=== PATIENT | male | born 1960 | race Caucasian/White ===

== ENCOUNTER → 2017-11-24 | Outpatient (CLI) | payer MEDICARE, OTHER ==
[2017-11-24 14:41] LABS: ALT 30 U/L (21-72); AST 22 U/L (17-59); Albumin 3.9 g/dL (3.5-5.0); Alkaline Phosphatase 54 U/L (38-126); Anion Gap 13 mmol/L; Blood Urea Nitrogen 15 mg/dL (9-20); Calcium 8.9 mg/dL (8.4-10.2); Carbon Dioxide 27 mmol/L (22-30); Chloride 103 mmol/L (98-107); Glucose 156 mg/dL (74-99); Potassium 4.1 mmol/L (3.5-5.1); Sodium 143 mmol/L (137-145); Total Bilirubin 0.5 mg/dL (0.2-1.3); Total Protein 6.5 g/dL (6.3-8.2)
== END | disposition home or self-care (01) ==
LOC: LABWHC1 14:03
PROVIDERS: ATTEND Internal Medicine Endocrinology, Diabetes & Metabolism
DX: E11.65 Type 2 diabetes mellitus with hyperglycemia (principal)
CPT/HCPCS: 36415; 80053

== ENCOUNTER 2019-11-13 16:55 | Inpatient (IN) | payer MEDICARE, OTHER ==
[2019-11-13] MEDS ORDERED: ASPIRIN 81 MG PO STA (17:00)
[2019-11-13 17:50] LABS: Basophils # (A) 0.1 k/uL (0-0.2); Basophils % (A) 1 %; Eosinophils # (A) 0.3 k/uL (0-0.7); Eosinophils % (A) 3 %; HCT 41.8 % (39.0-53.0); HGB 13.5 gm/dL (13.0-17.5); Lymphocytes # (A) 2.5 k/uL (1.0-4.8); Lymphocytes % (A) 26 %; MCH 27.1 pg (25.0-35.0); MCHC 32.2 g/dL (31.0-37.0); MCV 84.3 fL (80.0-100.0); Mean Platelet Volume 7.6; Monocytes # (A) 0.7 k/uL (0-1.0); Monocytes % (A) 7 %; Neutrophils # (A) 5.8 k/uL (1.3-7.7); Neutrophils % (A) 62 %; Platelet Count 452 k/uL (150-450); RBC 4.96 m/uL (4.30-5.90); RDW 13.5 % (11.5-15.5); WBC 9.4 k/uL (3.8-10.6)
[2019-11-13 18:00] LABS: Albumin 3.8 g/dL (3.5-5.0); Calcium 9.3 mg/dL (8.4-10.2); Magnesium 1.7 mg/dL (1.6-2.3); Potassium 5.2 mmol/L (3.5-5.1); Total Bilirubin 0.4 mg/dL (0.2-1.3); Total Protein 6.7 g/dL (6.3-8.2)
--- NOTE | 2019-11-13 18:03 | XR ---
EXAMINATION TYPE: XR chest 2V DATE OF EXAM: 11/13/2019 COMPARISON: Prior chest 12/17/2015 HISTORY: Chest pain TECHNIQUE: Frontal and lateral views of the chest are obtained. FINDINGS: There is no focal air space opacity, pleural effusion, or pneumothorax seen. The cardiac silhouette size is within normal limits. There are overlying cardiac leads. Some minimal blunting the right costophrenic angle may be due to chronic pleural reaction. There are prominent lung volumes. The osseous structures are intact. IMPRESSION: No acute cardiopulmonary process.
[2019-11-13 18:14] LABS: D-Dimer 0.3 mg/L FEU (<0.60)
[2019-11-13 18:33] LABS: Partial Thromboplastin Time 21.3 sec (22.0-30.0)
[2019-11-13] MEDS ORDERED: NITROGLYCERIN SL TABS 0.4 MG TAB SUBLINGUAL PRN (18:35)
--- NOTE | 2019-11-13 19:09 | ED ---
Dizziness HPI - General Chief Complaint: Syncope Stated Complaint: Syncope Time Seen by Provider: 11/13/19 17:00 Source: patient, EMS Mode of arrival: EMS Limitations: no limitations - History of Present Illness Initial Comments: 59-year-old male with history of significant coronary artery disease with 5 stents placed, HTN as her presenting today for chief complaint of syncope. Patient states he had 2 syncopal episodes [id number] today. He stated the initial one happened when he was walking from his camper to inside he states he does not believe but is unsure if he hit his head he has no headaches visual changes nausea vomiting. Chest pain or shortness breath prior he states he felt slightly lightheaded and then woke up on the ground. Patient states that he then had another syncopal episode shortly after in the house and fell onto the couch- he states he is unsure if he hit his head but doesnt feel like he did. Patient states no one noted seizure-like activity he states he did not have incontinence. Patient states he only felt lightheaded he had no chest pain or shortness of breath he denies any leg swelling. Deep inspiration history of DVT or pulmonary embolism or unilateral leg swelling. Patient denies any fevers cough or URI symptoms patient denies diarrhea or vomiting. Patient denies any melena hematochezia or hematemesis. Patient denies any visual changes sensation of the room is spinning. Patient denies any neck pain. Patient denies any injury to the upper or lower extremities denies injury to the chest or abdomen. Patient has no localizing symptoms at this time he was brought to the emergency department after second syncopal episode. - Related Data Home Medications Medication Instructions Recorded Confirmed Carvedilol [Coreg] 6.25 mg PO BID 08/27/15 12/31/15 Clopidogrel [Plavix] 75 mg PO HS 08/27/15 12/31/15 Fenofibrate,Micronized 200 mg PO HS 08/27/15 12/31/15 [Fenofibrate] Gabapentin [Neurontin] 200 mg PO TID 08/27/15 12/31/15 Lisinopril [Zestril] 5 mg PO DAILY 08/27/15 12/31/15 Loratadine [Claritin] 10 mg PO BID 08/27/15 12/31/15 Ranolazine [Ranexa] 500 mg PO BID 08/27/15 12/31/15 Simvastatin [Zocor] 40 mg PO HS 08/27/15 12/31/15 Citalopram Hydrobromide 40 mg PO DAILY 09/10/15 12/31/15 [Citalopram HBr] Ezetimibe [Zetia] 10 mg PO DAILY 09/10/15 12/31/15 Varenicline [Chantix Continuing 1 mg PO BID 09/10/15 12/31/15 Pack] Albuterol Sulfate [Proair Hfa] 1 puff INHALATION RT-QID PRN 09/14/15 12/31/15 ALPRAZolam [Xanax] 1 mg PO HS 10/08/15 12/31/15 INSULIN LISPRO (humaLOG) [humaLOG] See Protocol SQ ACHS PRN 11/25/15 12/31/15 Isosorbide Mononitrate ER [Imdur] 60 mg PO QAM 12/10/15 12/31/15 metFORMIN HCL 1,000 mg PO BID 12/10/15 12/31/15 Previous Rx's Medication Instructions Recorded INSULIN LISPRO (humaLOG) [humaLOG] 15 unit SQ AC-BRKFST #1 vial 11/30/15 INSULIN LISPRO (humaLOG) [humaLOG] 25 unit SQ AC-LUNCH vial 11/30/15 INSULIN LISPRO (humaLOG) [humaLOG] 25 unit SQ AC-SUPPER vial 11/30/15 Insulin Glargine [Lantus] 60 unit SQ BID #0 11/30/15 Allergies Allergy/AdvReac Type Severity Reaction Status Date / Time No Known Allergies Allergy Verified 11/13/19 18:46 Review of Systems ROS Statement: Those systems with pertinent positive or pertinent negative responses have been documented in the HPI. ROS Other: All systems not noted in ROS Statement are negative. Past Medical History Past Medical History: Asthma, Chest Pain / Angina, Heart Failure, COPD, Diabetes Mellitus, Hyperlipidemia, Myocardial Infarction (NV) Additional Past Medical History / Comment(s): hay fever, neuropathy, NV in 2013 Last Myocardial Infarction Date:: 05/22/2014 History of Any Multi-Drug Resistant Organisms: None Reported Past Surgical History: Heart Catheterization, Heart Catheterization With Stent Additional Past Surgical History / Comment(s): [address] in 2013, 2 stents placed in 2012. Incision and drainage (debridement of left foot wound) Past Anesthesia/Blood Transfusion Reactions: No Reported Reaction Date of Last Stent Placement:: 05/2014 Past Psychological History: Anxiety, Depression Smoking Status: Current every day smoker Past Alcohol Use History: None Reported Past Drug Use History: Marijuana - Past Family History Mother Family Medical History: Congestive Heart Failure (CHF), Diabetes Mellitus Father Family Medical History: Congestive Heart Failure (CHF), Diabetes Mellitus General Exam - General Exam Comments Initial Comments: General: The patient is awake and alert, in no distress Eye: +3 mm pupils are equal, round and reactive to light, extra-ocular movements are intact. No nystagmus. There is normal conjunctiva bilaterally. No signs of icterus. Ears, nose, mouth and throat: There are moist mucous membranes and no oral lesions. No scalp hematomas no raccoon or Figueroa sign. Neck: The neck is supple, there is no tenderness or JVD. No midline tenderness to patient the cervical spine forward motion without pain Cardiovascular: There is a regular rate and rhythm. No murmur, rub or gallop is appreciated. Respiratory: Lungs are clear to auscultation, respirations are non-labored, breath sounds are equal. No wheezes, stridor, rales, or rhonchi. Gastrointestinal: Soft, non-distended, non-tender abdomen without masses or organomegaly noted. There is no rebound or guarding present. Musculoskeletal: Normal ROM, no tenderness. Strength 5/5. Sensation intact. Radial and DP pulses equal bilaterally 2+. Neurological: A&O x 3. CN II-XII intact, There are no obvious motor or sensory deficits. Coordination appears grossly intact. Speech is normal. Skin: Skin is warm and dry and no rashes or lesions are noted. NO LE edema, no calf swelling or pain Psychiatric: Cooperative, appropriate mood & affect, normal judgment. Limitations: no limitations Course Vital Signs 11/13/19 11/13/19 11/13/19 16:56 17:43 19:00 Temperature 98.3 F Pulse Rate 71 68 62 Respiratory 18 18 18 Rate Blood Pressure 110/66 95/57 117/67 O2 Sat by Pulse 97 94 L 97 Oximetry 11/13/19 11/13/19 20:00 20:58 Temperature 97.9 F 98.0 F Pulse Rate 64 64 Respiratory 18 18 Rate Blood Pressure 113/69 137/71 O2 Sat by Pulse 96 97 Oximetry Medical Decision Making - Medical Decision Making 59 yo male presenting for cc of syncope x2. CAD history. No CP/SOB. Lungs clear. Heart slight murmur. No Leg swelling, No distress. CT brain (-) obtained secondary to patient not being sure if he hit his head or not and he is on plavix. Patient CXR clear. No focal neurological deficits. However given that the episode occurred twice. Patient will be admitted for echo and cardiology evaluation. Dr. Scott agreeable to this care plan and admission, he spoke with admitting provider who accepted. - Lab Data Result diagrams: 11/13/19 17:00 11/13/19 17:00 Lab Results 11/13/19 11/13/19 11/13/19 Range/Units 17:00 17:00 17:00 WBC 9.4 (3.8-10.6) k/uL RBC 4.96 (4.30-5.90) m/uL Hgb 13.5 (13.0-17.5) gm/dL Hct 41.8 (39.0-53.0) % MCV 84.3 (80.0-100.0) fL MCH 27.1 (25.0-35.0) pg MCHC 32.2 (31.0-37.0) g/dL RDW 13.5 (11.5-15.5) % Plt Count 452 H (150-450) k/uL Neutrophils % 62 % Lymphocytes % 26 % Monocytes % 7 % Eosinophils % 3 % Basophils % 1 % Neutrophils # 5.8 (1.3-7.7) k/uL Lymphocytes # 2.5 (1.0-4.8) k/uL Monocytes # 0.7 (0-1.0) k/uL Eosinophils # 0.3 (0-0.7) k/uL Basophils # 0.1 (0-0.2) k/uL PT 10.0 (9.0-12.0) sec INR 1.0 (<1.2) APTT 21.3 L (22.0-30.0) sec D-Dimer 0.30 (<0.60) mg/L FEU Sodium 136 L (137-145) mmol/L Potassium 5.2 H (3.5-5.1) mmol/L Chloride 103 (98-107) mmol/L Carbon Dioxide 22 (22-30) mmol/L Anion Gap 11 mmol/L BUN 21 H (9-20) mg/dL Creatinine 1.28 H (0.66-1.25) mg/dL Est GFR (CKD-EPI)AfAm 70 (>60 ml/min/1.73 sqM) Est GFR (CKD-EPI)NonAf 61 (>60 ml/min/1.73 sqM) Glucose 164 H (74-99) mg/dL Calcium 9.3 (8.4-10.2) mg/dL Magnesium 1.7 (1.6-2.3) mg/dL Total Bilirubin 0.4 (0.2-1.3) mg/dL AST 21 (17-59) U/L ALT 18 (4-49) U/L Alkaline Phosphatase 79 (38-126) U/L Troponin I (0.000-0.034) ng/mL Total Protein 6.7 (6.3-8.2) g/dL Albumin 3.8 (3.5-5.0) g/dL 11/13/19 Range/Units 17:00 WBC (3.8-10.6) k/uL RBC (4.30-5.90) m/uL Hgb (13.0-17.5) gm/dL Hct (39.0-53.0) % MCV (80.0-100.0) fL MCH (25.0-35.0) pg MCHC (31.0-37.0) g/dL RDW (11.5-15.5) % Plt Count (150-450) k/uL Neutrophils % % Lymphocytes % % Monocytes % % Eosinophils % % Basophils % % Neutrophils # (1.3-7.7) k/uL Lymphocytes # (1.0-4.8) k/uL Monocytes # (0-1.0) k/uL Eosinophils # (0-0.7) k/uL Basophils # (0-0.2) k/uL PT (9.0-12.0) sec INR (<1.2) APTT (22.0-30.0) sec D-Dimer (<0.60) mg/L FEU Sodium (137-145) mmol/L Potassium (3.5-5.1) mmol/L Chloride (98-107) mmol/L Carbon Dioxide (22-30) mmol/L Anion Gap mmol/L BUN (9-20) mg/dL Creatinine (0.66-1.25) mg/dL Est GFR (CKD-EPI)AfAm (>60 ml/min/1.73 sqM) Est GFR (CKD-EPI)NonAf (>60 ml/min/1.73 sqM) Glucose (74-99) mg/dL Calcium (8.4-10.2) mg/dL Magnesium (1.6-2.3) mg/dL Total Bilirubin (0.2-1.3) mg/dL AST (17-59) U/L ALT (4-49) U/L Alkaline Phosphatase (38-126) U/L Troponin I <0.012 (0.000-0.034) ng/mL Total Protein (6.3-8.2) g/dL Albumin (3.5-5.0) g/dL Disposition Clinical Impression: Syncope, Lightheaded Disposition: ADMITTED IP TO THIS [facility] Condition: Stable Is patient prescribed a controlled substance at d/c from ED?: No Time of Disposition: 19:28 Decision to Admit Reason: Admit from EC Decision Date: 11/13/19 Decision Time: 19:28
--- NOTE | 2019-11-13 19:15 | CT ---
EXAMINATION TYPE: CT brain wo con DATE OF EXAM: 11/13/2019 COMPARISON: None HISTORY: Syncopal episode per patient. CT DLP: 1096.4 mGycm Automated exposure control for dose reduction was used. CT brain performed using departmental protoco l FINDINGS: There is no hemorrhage or hydrocephalus. Brain density is normal. Calvarium is intact. Orbits show po stop change in the right globe. Paranasal sinuses and mastoid air cells are unremarkable. There are c erebrovascular calcifications. IMPRESSION: NO ACUTE ABNORMALITY.
[2019-11-13 21:31] LABS: Glucose,Whole Blood 179 mg/dL (75-99)
[2019-11-13] MEDS ORDERED: ACETAMINOPHEN TAB 325 MG TAB PO PRN (22:02)
[2019-11-13] MEDS: NICOTINE 21MG/24HR PATCH TRANSDERM SCH (22:24)
[2019-11-14 05:07] LABS: Cholesterol 164 mg/dL (<200); HDL Cholesterol 24 mg/dL (40-60)
[2019-11-14 05:14] LABS: Triglycerides 598 mg/dL (<150)
[2019-11-14 06:20] LABS: Glucose,Whole Blood 200 mg/dL (75-99)
[2019-11-14] MEDS: INSULIN ASPART (NovoLOG) 100 UNIT/ML VIAL SQ SCH ×4 (06:29→21:52)
[2019-11-14] MEDS: INSULIN DETEMIR (LEVEMIR) 100 UNIT/ML SYR SQ SCH ×2 (08:24→21:52)
[2019-11-14] MEDS: NICOTINE 21MG/24HR PATCH TRANSDERM SCH (08:24)
[2019-11-14] MEDS ORDERED: ASPIRIN 325 MG TAB PO SCH (09:00)
[2019-11-14] MEDS: METOPROLOL SUCCINATE (ER) 50 MG TAB.ER.24H PO SCH (10:18)
[2019-11-14 11:29] LABS: Glucose,Whole Blood 343 mg/dL (75-99)
--- NOTE | 2019-11-14 15:09 | HP ---
HISTORY AND PHYSICAL CHIEF COMPLAINT: Three episodes of syncope. HISTORY OF PRESENT ILLNESS: This is the first known admission for this gentleman who was standing with some friends when he suddenly passed out. He came to and he had two other events. The last one he remembers waking up in the ambulance. Apparently there was no witnessed tonic colonic movement. He denied any chest pain before or after, nor any palpitations, neurologic deficits, etc. He has had no fever or chills. He has had no cough or hemoptysis. He is diabetic and it was thought that he might have had hypoglycemia, but this was not the case either. The only thing he did notice was some dizziness. He has an extensive history of heart disease. He also has a significant problem with peripheral vascular disease and lipid abnormalities. REVIEW OF SYSTEMS: He denies any focal neurologic deficits, headache, change in vision or hearing, diplopia, shortness of breath, cough, hemoptysis, pleurisy, orthopnea, PND, nausea, vomiting, hematemesis, melena, hematochezia, abdominal pain, diverticulosis, diverticulitis, hemorrhoids, jaundice, hepatitis, cirrhosis, renal failure, hematuria, dysuria, frequency, urgency, nocturia, etc. Past medical history, family history and personal and social histories reveal that he is not allergic to anything. He is on numerous medications, which can be found in the medication section of his record. Surgically, he has had four stents placed and he has had a procedure for occlusive disease in the left leg and supposed to have had another one on the left lower extremity as well. He does not drink but he smokes a pack of cigarettes a day. PHYSICAL EXAMINATION: Blood pressure is 110/66, pulse 71 and regular, respirations of 18, he is afebrile. In general, appeared to be well developed, well nourished, no acute distress. Skin color is normal. Skin is warm, dry. Lymph nodes not enlarged. Head, ears, eyes, nose, mouth, and throat were normal. Neck veins were not distended. Carotids seemed to be normal. Chest is clear to auscultation and percussion. Cardiac exam demonstrated what sounded like normal sinus rhythm. There was no definite murmur or extra sounds. The abdomen was slightly protuberant, soft and nontender. There are no masses or visceromegaly. Extremities were normal. Neurologically, he is intact. Cranial nerves were intact from 2-12 associates. Sensory motor exam is normal. Speech was normal. He was admitted to the hospital diagnoses: 1. Three episodes of syncope. 2. Extensive history of cardiovascular disease. 3. History of coronary artery disease. 4. History of peripheral vascular occlusive disease. 5. Insulin-dependent diabetes mellitus. PLAN: 1. Bed rest. 2. IV fluids. 3. Carotid duplex imaging. 4. EEG. 5. Telemetry. 6. Consult with Neurology and Cardiology. MMODL / IJN: [id number] /
[2019-11-14] MEDS: GABAPENTIN 300 MG CAP PO SCH ×2 (15:12→21:52)
--- NOTE | 2019-11-14 15:14 | US ---
EXAMINATION TYPE: US carotid duplex BILAT DATE OF EXAM: 11/14/2019 COMPARISON: NONE CLINICAL HISTORY: syncope. EXAM MEASUREMENTS: RIGHT: Peak Systolic Velocity (PSV) cm/sec ----- Right CCA: 127.6 ----- Right ICA: 86.5 ----- Right ECA: 141.5 ICA/CCA ratio: 0.7 RIGHT: End Diastole cm/sec ----- Right CCA: 13.7 ----- Right ICA: 19.5 ----- Right ECA: 11.6 LEFT: Peak Systolic Velocity (PSV) cm/sec ----- Left CCA: 109 ----- Left ICA: 90.3 ----- Left ECA: 120.0 ICA/CCA ratio: 0.7 LEFT: End Diastole cm/sec ----- Left CCA: 13.7 ----- Left ICA: 19.2 ----- Left ECA: 7.7 VERTEBRALS (direction of flow): Right Vertebral: Antegrade Left Vertebral: Antegrade Rhythm: Normal Moderate amount of intimal thickening, slightly elevated velocities visualized right mid CCA, right b ulb, right ECA, left proximal CCA IMPRESSION: Mildly elevated velocities multifocally however the common carotid artery to internal ca rotid artery ratios are within normal limits therefore findings suggest hypertension rather than hemo dynamically significant atherosclerosis. If there is further concern CTA neck could be considered. Criteria for Assigning % of Stenosis / Diameter reduction (Estimation based on the indirect measurements of the internal carotid artery velocities (ICA PSV). 1. Normal (no stenosis)=ICA PSV < 125 cm/s: ratio < 2.0: ICA EDV<40 cm/s. 2. Less than 50% stenosis=ICA PSV < 125 cm/s: ratio < 2.0: ICA EDV<40 cm/s. 3. 50 to 69% stenosis=ICA PSV of 125 to 230 cm/s: ration 2.0 ? 4.0: ICA EDV 40-100 cm/s. 4. Greater than 70% stenosis to near occlusion= ICA PSV > 230 cm/s: ratio > 4.0: ICA EDV > 100 cm/s. 5. Near occlusion= ICA PSV velocities may be low or undetectable: variable ratio and ICA EDV. 6. Total occlusion=unable to detect flow.
--- NOTE | 2019-11-14 15:15 | PN ---
PROGRESS NOTE DATE OF SERVICE: 11/14/2019 CHIEF COMPLAINT: Syncope. HISTORY OF PRESENT ILLNESS: This gentleman is doing well. He has had no further syncopal events. He has had no palpitations, chest pain, confusion, neurologic problems, dizziness, etc. PHYSICAL EXAM: Head ears, eyes, nose, mouth, and throat are normal. The chest is clear. Cardiac exam is normal. Abdomen is soft, nontender. He is awake, alert and neurologically intact. IMPRESSION: 1. Three separate episodes of syncope. 2. Coronary artery disease. 3. Peripheral vascular occlusive disease. 4. Diabetes. PLAN: Progress activity and continue telemetry. MMODL / IJN: [id number] /
[2019-11-14 16:21] LABS: Glucose,Whole Blood 328 mg/dL (75-99)
[2019-11-14] MEDS: LOSARTAN 25 MG TAB PO SCH (17:13)
[2019-11-14] MEDS ORDERED: CARVEDILOL 6.25 MG TAB PO SCH (17:30)
[2019-11-14] MEDS ORDERED: CARVEDILOL 12.5 MG TAB PO SCH (17:30)
[2019-11-14 20:15] LABS: Glucose,Whole Blood 288 mg/dL (75-99)
[2019-11-14] MEDS: SYMBICORT 160-4.5 MCG INHALER INHALATION SCH (20:26)
--- NOTE | 2019-11-14 20:40 | P.CNNES ---
History of Present Illness Consult date: 11/14/19 Reason for Consult: Syncope History of Present Illness: This is a new neurology consult requested for further advice and recommendations for a stat T9-year-old gentleman who has significant past medical history for coronary artery disease 5 stents placed. He has hypertension and presented to the emergency room with 3 episodes of syncope within 24 hours. He denies having any nausea vomiting or bulbar side effects. No weakness paresthesias. He has no localizing symptoms that were reported while he was in the ER. He has no localizing symptoms currently. A review of his chart indicates a brain CT was completed did not show any evidence of acute infarct. EKG shows a normal sinus rhythm. Carotid dull Doppler ultrasound results pending. Lipid panel was abnormal for a triglyceride level of 598 within normal cholesterol 164 and decreased HDL 24. Platelets were also significantly elevated at 454. Glucose was mildly elevated at 164. The patient is on dual antiplatelet therapy aspirin and Plavix. The patient reports she's never had a stroke before. This was a new episode however last year he had syncopal episodes which he sought medical attention for. He said there was no clear etiology but it was thought it was due to pneumonia. This patient also has a significant history for COPD. He does not use oxygen at night. He has never been evaluated for obstructive sleep apnea. This patient has significant stroke risk factors which include coronary artery disease, peripheral vascular disease insulin-dependent diabetes and hypertension. When asked of any new medications had been started recently he reports that over a month ago he was started on a new blood pressure medication but he cannot recall the name of it. He felt that he was tolerating this new medication without side effects his blood pressure was well controlled. Review of Systems A 10 point review of systems was obtained with positive pertinent negatives related to history of present illness. In addition the patient does report frequently waking up 2-3 times a night to urinate. He does not have a known history of prostatic hypertrophy. Past Medical History Past Medical History: Asthma, Chest Pain / Angina, Heart Failure, COPD, Diabetes Mellitus, Hyperlipidemia, Myocardial Infarction (SD) Additional Past Medical History / Comment(s): hay fever, neuropathy, SD in 2013 Last Myocardial Infarction Date:: 05/22/2014 History of Any Multi-Drug Resistant Organisms: None Reported Past Surgical History: Heart Catheterization, Heart Catheterization With Stent Additional Past Surgical History / Comment(s): [address] in 2013, 2 stents placed in 2012. Incision and drainage (debridement of left foot wound) Past Anesthesia/Blood Transfusion Reactions: No Reported Reaction Date of Last Stent Placement:: 05/2014 Past Psychological History: Anxiety, Depression Smoking Status: Current every day smoker Past Alcohol Use History: None Reported Past Drug Use History: Marijuana - Past Family History Mother Family Medical History: Congestive Heart Failure (CHF), Diabetes Mellitus Father Family Medical History: Congestive Heart Failure (CHF), Diabetes Mellitus Medications and Allergies Home Medications Medication Instructions Recorded Confirmed Type Lisinopril [Zestril] 5 mg PO DAILY 08/27/15 11/14/19 History Ranolazine [Ranexa] 500 mg PO BID 08/27/15 11/14/19 History Simvastatin [Zocor] 40 mg PO HS 08/27/15 11/14/19 History Citalopram Hydrobromide 40 mg PO DAILY 09/10/15 11/14/19 History [Citalopram HBr] Ezetimibe [Zetia] 10 mg PO DAILY 09/10/15 11/14/19 History Albuterol Sulfate [Proair Hfa] 1 puff INHALATION RT-QID PRN 09/14/15 11/14/19 H istory metFORMIN HCL 1,000 mg PO BID 12/10/15 11/14/19 History Budesonide/Formoterol Fumarate 1 puff INHALATION RT-BID 11/14/19 11/14/19 History [Symbicort 160-4.5 Mcg Inhaler] Carvedilol [Coreg] 12.5 mg PO BID 11/14/19 11/14/19 History Fenofibrate [Lofibra] 160 mg PO DAILY 11/14/19 11/14/19 History Gabapentin [Neurontin] 300 mg PO TID 11/14/19 11/14/19 History INSULIN LISPRO (humaLOG) [humaLOG] 20 unit SQ AC-BRKFST 11/14/19 11/14/19 History INSULIN LISPRO (humaLOG) [humaLOG] 40 unit SQ AC-LUNCH 11/14/19 11/14/19 History INSULIN LISPRO (humaLOG) [humaLOG] 40 unit SQ AC-SUPPER 11/14/19 11/14/19 History Isosorbide Mononitrate ER [Imdur] 30 mg PO DAILY 11/14/19 11/14/19 History Losartan [Cozaar] 25 mg PO DAILY 11/14/19 11/14/19 History Omeprazole [PriLOSEC] 40 mg PO DAILY 11/14/19 11/14/19 History Allergies Allergy/AdvReac Type Severity Reaction Status Date / Time No Known Allergies Allergy Verified 11/13/19 18:46 Physical Examination - Vital Signs Vital Signs: Vital Signs Temp Pulse Pulse Pulse Pulse Pulse Resp 11/14/19 15:16 98.3 F 70 16 11/14/19 11:22 98 F 66 18 11/14/19 08:00 98.3 F 65 16 11/14/19 05:30 11/14/19 04:00 98.5 F 70 81 62 17 11/13/19 23:40 98 F 68 17 11/13/19 20:58 98.0 F 64 18 BP BP BP BP BP Pulse Ox 11/14/19 15:16 145/77 95 11/14/19 11:22 100/62 96 11/14/19 08:00 135/70 95 11/14/19 05:30 145/70 11/14/19 04:00 144/75 168/86 173/89 96 11/13/19 23:40 125/60 96 11/13/19 20:58 137/71 97 Intake and Output 11/14/19 11/14/19 11/14/19 06:59 14:59 22:59 Intake Total 720 240 Output Total 300 240 100 Balance -300 480 140 Intake: Oral 720 240 Output: Urine 300 240 100 Other: # Voids 1 1 Weight 126.4 kg Gen. physical examination obese no acute distress HEENT clear sclera oropharynx shows Janessa Dean grade 3 large broad-based tongue narrow posterior pharynx. Greater than 17 inches. Chest: Wheezing noted throughout coarse breath sounds. Next line cardiac: Regular rate and rhythm no murmurs noted. No carotid bruits present. Pulses: Radial pedal pulses equal and symmetric. Extremities: No clubbing of the digits noted no edema noted in the hands or feet. Neurologic exam Mental status awake alert oriented 3. Speech fluent. Affect appropriate. Pupils: 2 mm equally reactive to light and accommodation. Cranial nerve examination: Cranial nerves III through XII are intact. Gag reflex is strong. Motor examination: Normal muscle bulk and tone throughout. Strength is 5 out of 5 throughout. Pronator drift negative. No tremors or fasciculations noted. Coordination testing: Dysmetria noted on finger to nose testing with the left hand. Heel jeter maneuver is intact bilaterally. Normal finger to nose testing on the right. Deep tendon reflexes are trace over the biceps triceps bilaterally. Patellar reflexes are brisk without crossed adduction bilaterally. Ankle jerks are absent bilaterally. Plantar responses not tested. (Notable sores on soles of feet from peripheral vascular disease). Sensory examination: Grossly intact to light touch throughout. Gait examination deferred Results - Laboratory Findings CBC and BMP: 11/13/19 17:00 11/13/19 17:00 Abnormal Lab Findings: Abnormal Labs 11/13/19 11/13/19 11/13/19 17:00 17:00 17:00 Plt Count 452 H APTT 21.3 L Sodium 136 L Potassium 5.2 H BUN 21 H Creatinine 1.28 H Glucose 164 H POC Glucose (mg/dL) Triglycerides HDL Cholesterol 11/13/19 11/14/19 11/14/19 21:30 04:39 06:18 Plt Count APTT Sodium Potassium BUN Creatinine Glucose POC Glucose (mg/dL) 179 H 200 H Triglycerides 598 H HDL Cholesterol 24 L 11/14/19 11/14/19 11/14/19 11:27 16:20 20:14 Plt Count APTT Sodium Potassium BUN Creatinine Glucose POC Glucose (mg/dL) 343 H 328 H 288 H Triglycerides HDL Cholesterol - Diagnostic Findings EKG: report reviewed Chest x-ray: report reviewed Assessment and Plan Assessment: This is a 59-year-old gentleman who presents with 3 episodes of syncope within 24 hours. This patient has significant stroke risk factors involving insulin dependent diabetes, hypertension and coronary vascular disease. I also believe this patient could be at increased risk for sleep apnea. His platelets were noted to be abnormally high which is often seen in obstructive sleep apnea. Due to the significant coronary disease history, I'm recommending we obtain this evening a CT angiogram of the head and neck to rule out any high-grade stenosis or large vessel occlusion. His neuro exam was focal showing dysmetria with the left hand. His general physical examination was significant for crowded airway posterior pharynx all increasing the risk for obstructive sleep apnea. Summary 1. Syncope 2. Significant stroke risk factors: Hypertension, coronary artery disease, insulin-dependent diabetes 3. Suspect obstructive sleep apnea, possibly overlap syndrome (COPD plus obstructive sleep apnea)/ sleep apnea is the third leading risk factor for stroke independent of diabetes, hypertension and atrial fibrillation. 4. Elevated platelets: Often seen in the setting of obstructive sleep apnea. Increasing risk for hyper-coagulability. 5. Abnormal triglyceride level (patient consumes excessive amount and eggs & venison) Plan: 1. CT angiogram head and neck tonight. 2. MRI of the brain without contrast tomorrow morning. 3. 2-D cardiac echo with cardiology consult. 4. Contact PCP, Dr. Douglass at [phone] to determine what was the new blood pressure medication started 30 days ago and discussed referral for In-lab p olysomnogram 5. Continue with current dual antiplatelet therapy and statin therapy. 6. Blood pressure parameters: Maintain systolic blood pressure between 120-130 and diastolic blood pressures between 80 and 90. 7. Begin 500 mL bolus normal saline prior to CT angiogram. Results will be discussed with patient on phone this evening. 8. Diabetic nutrition consult to help patient look for alternatives to excessive consumption of eggs and venison. Thank you for this consultation and allowing me to produce pain in care of your patient. This patient's prognosis remains guarded. Further recommendations will made as this case evolves. Charissa Gonzales MD Board Certified in Neurology and Sleep Medicine
[2019-11-14] MEDS ORDERED: RANOLAZINE 500 MG TAB.ER.12H PO SCH (21:00)
[2019-11-14] MEDS ORDERED: SIMVASTATIN 40 MG PO SCH (21:00)
--- NOTE | 2019-11-14 21:45 | CT ---
EXAMINATION TYPE: CT angio head neck DATE OF EXAM: 11/14/2019 COMPARISON: None HISTORY: Syncope. CT DLP: 752.7 mGycm Automated exposure control for dose reduction was used. CONTRAST: Performed with IV Contrast, patient injected with 65 mL of Isovue 370. Images were obtained from the aortic arch to the vertex of the brain with IV contrast and 3-D post pr ocessed images. There is normal branching pattern of the great vessels on the aortic arch. There is bilateral arteria l flow in the subclavian arteries. There is arterial flow in the common internal and external carotid arteries bilaterally. The carotid artery bifurcations are widely patent. There is minimal plaque on the right side. There is arterial flow in both vertebral arteries. There is no evidence of carotid or vertebral artery aneurysm or dissection. There is arterial flow in the vertebrobasilar artery system. There is arterial flow in the anterior m iddle and posterior cerebral arteries. There is normal contrast opacification of the venous sinuses. There is no evidence of intracranial aneurysm or neovascularity. There is no mass effect. There is no sign of hemodynamic stenosis. IMPRESSION: Negative CT angiogram of the brain. Negative CT angiogram of the neck.
[2019-11-14] MEDS: RANOLAZINE 500 MG TAB.ER.12H PO SCH (21:52)
[2019-11-14] MEDS ORDERED: SODIUM CHLORIDE 0.9% 500 ML 500 ML IV ONE (22:52)
[2019-11-15 07:10] LABS: Glucose,Whole Blood 115 mg/dL (75-99)
[2019-11-15] MEDS: INSULIN ASPART (NovoLOG) 100 UNIT/ML VIAL SQ SCH ×4 (07:11→21:13)
[2019-11-15] MEDS: INSULIN DETEMIR (LEVEMIR) 100 UNIT/ML SYR SQ SCH ×2 (07:11→21:14)
[2019-11-15] MEDS: PANTOPRAZOLE 40 MG TABLET PO SCH (07:11)
[2019-11-15] MEDS: FENOFIBRATE 160 MG TAB PO SCH (08:39)
[2019-11-15] MEDS: CLOPIDOGREL 75 MG TAB PO SCH (08:39)
[2019-11-15] MEDS: GABAPENTIN 300 MG CAP PO SCH ×3 (08:39→21:13)
[2019-11-15] MEDS: METOPROLOL SUCCINATE (ER) 50 MG TAB.ER.24H PO SCH (08:39)
[2019-11-15] MEDS: ISOSORBIDE MONONITRATE ER 30 MG TAB.ER.24H PO SCH (08:39)
[2019-11-15] MEDS: NICOTINE 21MG/24HR PATCH TRANSDERM SCH (08:39)
[2019-11-15] MEDS: EZETIMIBE 10 MG TAB PO SCH (08:39)
[2019-11-15] MEDS: ASPIRIN 81 MG PO SCH (08:39)
[2019-11-15] MEDS: ATORVASTATIN 40 MG TAB PO SCH (08:39)
[2019-11-15] MEDS: RANOLAZINE 500 MG TAB.ER.12H PO SCH ×2 (08:39→21:13)
[2019-11-15] MEDS ORDERED: LISINOPRIL 5 MG TAB PO SCH (09:00)
[2019-11-15] MEDS ORDERED: SODIUM CHLORIDE 0.9% 1,000 ML IV SCH (09:45)
[2019-11-15 11:44] LABS: Glucose,Whole Blood 318 mg/dL (75-99)
[2019-11-15] MEDS: SYMBICORT 160-4.5 MCG INHALER INHALATION SCH ×2 (11:51→20:28)
--- NOTE | 2019-11-15 12:32 | MR ---
EXAMINATION TYPE: MR brain wo con DATE OF EXAM: 11/15/2019 COMPARISON: 11/14/2019, 11/13/2019 HISTORY: Snycope X3 episodes, Multiple CVA factors TECHNIQUE: T1-weighted sagittal, T2, FLAIR, and diffusion axial, and T2 coronal coronal views of the brain are submitted. FINDINGS: Exam limited by artifact. There is no evidence of acute ischemia. The ventricles, basal cisterns, and sulci overlying the conv exities are consistent with the patient's age. There is no mass effect. Faint abnormal signal in th e makayla appears chronic and likely related to microvascular remote ischemia. Motion artifact limits as sessment of the white matter. There are a few punctate areas of abnormal signal measuring less than 5 mm and nonspecific but likely on the basis of remote white matter ischemia. Craniocervical junction maintained. Sella turcica has a normal appearance. Nasal septal deviation not ed and there are changes of chronic sinusitis. No cerebellopontine angle mass. IMPRESSION: 1. No acute intracranial process findings suggestive of remote microvascular ischemia as discussed ab ove.
[2019-11-15] MEDS ORDERED: SODIUM CHLORIDE 0.9% 250 ML IV ONE (13:10)
[2019-11-15 13:36] VITALS: BMI 33.1
--- NOTE | 2019-11-15 14:31 | ECHOF ---
Referral Reason:syncope with HD MEASUREMENTS -------- HEIGHT: 195.6 cm WEIGHT: 126.6 kg BP: 150/69 IVSd: 1.5 cm (0.6 - 1.1) LVIDd: 5.0 cm (3.9 - 5.3) LVPWd: 1.4 cm (0.6 - 1.1) IVSs: 2.2 cm LVIDs: 3.5 cm LVPWs: 2.1 cm LA Diam: 4.0 cm (2.7 - 3.8) RVIDd: 3.8 cm (< 3.3) LAESV Index (A-L): 30.21 ml/m Ao Diam: 3.5 cm (2.0 - 3.7) AV Cusp: 2.2 cm (1.5 - 2.6) EPSS: 1.3 cm MV E Khang: 0.72 m/s MV DecT: 330 ms MV A Khang: 0.73 m/s MV E/A Ratio: 0.99 MV EF SLOPE: 68.14 mm/s (70 - 150) MV EXCURSION: 16.23 mm (> 18.000) FINDINGS -------- Sinus rhythm. This was a technically adequate study. The left ventricular size is normal. There is moderate concentric left ventricular hypertrophy. O verall left ventricular systolic function is normal with, an EF between 55 - 60 %. The right ventricle is mild to moderately enlarged. LA is midly dilated 29-33ml/m2. The right atrium is normal in size. Interatrial and interventricular septum intact. There is mild aortic valve sclerosis. The mitral valve is normal. The tricuspid valve appears structurally normal. Trace/mild (physiologic) pulmonic regurgitation. The aortic root size is normal. Normal inferior vena cava with normal inspiratory collapse consistent with estimated right atrial pre ssure of 5 mmHg. There is no pericardial effusion. CONCLUSIONS -------- 1. Sinus rhythm. 2. This was a technically adequate study. 3. The left ventricular size is normal. 4. There is moderate concentric left ventricular hypertrophy. 5. Overall left ventricular systolic function is normal with, an EF between 55 - 60 %. 6. The right ventricle is mild to moderately enlarged. 7. LA is midly dilated 29-33ml/m2. 8. The right atrium is normal in size. 9. Interatrial and interventricular septum intact. 10. There is mild aortic valve sclerosis. 11. The mitral valve is normal. 12. The tricuspid valve appears structurally normal. 13. Trace/mild (physiologic) pulmonic regurgitation. 14. The aortic root size is normal. 15. Normal inferior vena cava with normal inspiratory collapse consistent with estimated right atrial pressure of 5 mmHg. 16. There is no pericardial effusion. ROLL TESTER: Falguni Clement RDCS
--- NOTE | 2019-11-15 15:38 | P.PCN ---
Preoperative Diagnosis: Diagnosis Recurrent presyncope Twelve-lead ECG Sinus rhythm AL interval early repolarization abnormality diffuse. Normal heart rates Tilt table test Baseline blood pressure 136/81 mmHg Baseline heart is 66 beats a minute Patient was tilted upright at an angle of 70 per protocol. He did report lightheadedness but his blood pressure is 07/18/1963 and heart rates in the 70s. He also complained of pressure in the head but his heart rate and blood pressure normal. However his blood pressure dropped from 136/81 212/61 mmHg immediately upon standing and then remained in the 110-120 mmHg systolic. When he is laid supine his blood pressure increased 249/76. His mercury There was very mild increase in his heart rate Impression Orthostatic hypotension syndrome, very mild No syncope
--- NOTE | 2019-11-15 16:29 | EEG ---
ELECTROENCEPHALOGRAM REPORT DATE OF SERVICE: 11/15/2019 REASON FOR ADMISSION: Syncope. This is an inpatient EEG performed on a 59-year-old gentleman who had 3 episodes of syncope within 24 hours. He has a known history for cardiovascular disease and stent placement. He is currently on dual antiplatelet therapy. The patient had altered mental status to occurring with these events which raise suspicion for subclinical seizure activity. TECHNICAL REPORT: This is an inpatient EEG performed on the [employer] EEG monitor with electrodes placed according to the International 10-20 system and a single EKG channel. Simultaneous video EEG monitoring was performed. This EEG was reviewed in both longitudinal bipolar, average referential and transverse montages. Photic stimulation was performed. Hyperventilation was not performed. The recording begins with the patient in quiet wakefulness with an 8 to maximum 10 Hz [id number] amplitude posterior dominant rhythm that attenuates with eye opening. Low amplitude beta activity is prominent over the anterior and central head regions. Intermittent muscle and movement artifact contaminate the tracing. At 09:25: 36, the patient is noted to have his left hand jump. This is associated with no significant change in the background. Frequent eye blinking occurs throughout the recording, often at times make the recording difficult to interpret. The patient briefly reaches drowsiness, which is associated with an attenuation of the background rhythm, the appearance of slow rolling eye movements and increase in beta anteriorly and centrally. Deeper stages of sleep were not achieved. IMPRESSION: This is a normal awake, drowsy only EEG recording. No epileptiform activity, electrographic seizures, or focal slowing was noted. No abnormalities were noted in the photic stimulation. No abnormalities noted during the EKG. CLINICAL CORRELATION: A normal awake drowsy EEG does not preclude an underlying seizure tendency thus further clinical correlation is needed. If clinically indicated, a more prolonged overnight study or serial EEGs could provide additional information. MMODL / IJN: [id number] /
[2019-11-15 17:20] LABS: Glucose,Whole Blood 186 mg/dL (75-99)
[2019-11-15] MEDS: LOSARTAN 25 MG TAB PO SCH (17:52)
[2019-11-15 20:28] LABS: Glucose,Whole Blood 190 mg/dL (75-99)
--- NOTE | 2019-11-15 21:44 | PN ---
PROGRESS NOTE DATE OF SERVICE: 11/15/2019 CHIEF COMPLAINT: Syncope. HISTORY OF PRESENT ILLNESS: This gentleman is doing well. He has had one or two episodes where he felt slightly lightheaded for a few seconds, but he has had no other significant problems, including syncope, chest pain, focal neurologic problems, etc. His blood sugar is elevated slightly. PHYSICAL EXAMINATION: Chest is clear. Cardiac exam is normal. Abdomen is soft, nontender. IMPRESSION: 1. Three episodes of syncope. 2. Coronary artery disease. 3. Poorly controlled diabetes mellitus. 4. Peripheral vascular occlusive disease. PLAN: 1. Start to increase activity. 2. Continue his neurologic and cardiology evaluations. If he remains stable, he can probably be discharged tomorrow. MMODL / IJN: [id number] /
--- NOTE | 2019-11-15 22:15 | P.PN ---
Subjective Progress Note Date: 11/15/19 Principal diagnosis: Syncope Subjective: Patient has remained hemodynamically stable overnight. No further episodes of syncope reported. EEG completed. Objective - Vital Signs Vital signs: Vital Signs Temp 98.4 F 11/15/19 15:34 Pulse 64 11/15/19 15:34 Resp 16 11/15/19 15:34 BP 150/72 11/15/19 15:34 Pulse Ox 95 11/15/19 15:34 Intake & Output 11/15/19 11/15/19 11/16/19 06:59 18:59 06:59 Intake Total 897 Output Total 210 300 Balance -210 597 Weight 126.7 kg 126.7 kg Intake: Oral 897 Output: Urine 210 300 Other: # Voids 1 1 - Exam Patient examined chart reviewed. EEG today did not show any evidence of epileptiform activity though this was a wake only EEG study and does not preclude an underlying seizure tendency. Examination: Mental status: Awake alert oriented 3. Speech fluent. Affect appropriate. Pupils: 2 mm equally reactive to light and accommodation. Cranial nerve examination: Cranial nerves III through XII remain intact. Motor examination: Normal muscle bulk and tone throughout. Strength is 5 out of 5. Pronator drift negative. Coordination testing is intact to finger to nose testing with eyes open and eyes closed. Sensory examination grossly intact to light touch. Gait examination deferred. Deep tendon reflexes deferred. - Labs CBC & Chem 7: 11/13/19 17:00 11/13/19 17:00 Labs: Abnormal Lab Results - Last 24 Hours (Table) 11/15/19 11/15/19 11/15/19 Range/Units 07:09 11:13 17:18 POC Glucose (mg/dL) 115 H 318 H 186 H (75-99) mg/dL 11/15/19 Range/Units 20:26 POC Glucose (mg/dL) 190 H (75-99) mg/dL Assessment and Plan Assessment: This is a 59-year-old gentleman who presents with 3 episodes of syncope within 24 hours. This patient has significant stroke risk factors involving insulin dependent diabetes, hypertension and coronary vascular disease. I also believe this patient could be at increased risk for sleep apnea. His platelets were noted to be abnormally high which is often seen in obstructive sleep apnea. Due to the significant coronary disease history, I'm recommending we obtain this evening a CT angiogram of the head and neck to rule out any high-grade stenosis or large vessel occlusion. His neuro exam today did not show any dysmetria with the left hand. Based on this patient's stroke risk factors and 3 episodes of syncope, I am still strongly recommending this patient be considered for a loop recorder on discharge. High probability this patient is at risk for atrial fibrillation. MRI of the brain and MRA of the head and neck did not show any significant pathology. Summary 1. Syncope 2. Significant stroke risk factors: Hypertension, coronary artery disease, insulin-dependent diabetes 3. Suspect obstructive sleep apnea, possibly overlap syndrome (COPD plus obstructive sleep apnea)/ sleep apnea is the third leading risk factor for stroke independent of diabetes, hypertension and atrial fibrillation. 4. Elevated platelets: Often seen in the setting of obstructive sleep apnea. Increasing risk for hyper-coagulability. 5. Abnormal triglyceride level (patient consumes excessive amount and eggs & venison) 6. MRI of the brain is negative for any acute ischemic or hemorrhagic infarct. CT angiogram head and neck negative for any high-grade stenosis, aneurysm or dissection. Plan: 1. Recommend this patient be considered for a loop recorder prior to discharge. Close follow-up with cardiology as outpatient. 2. Continue with current dual antiplatelet therapy and statin therapy. 3. Blood pressure parameters: Maintain systolic blood pressure between 120-130 and diastolic blood pressures between 80 and 90. 4. Anticipate discharge planning Thank you for this consultation and allowing me to produce pain in care of your patient. This patient's prognosis remains guarded. Further recommendations will made as this case evolves. Charissa Gonzales MD Board Certified in Neurology and Sleep Medicine
[2019-11-16 06:27] LABS: Glucose,Whole Blood 214 mg/dL (75-99)
[2019-11-16] MEDS: INSULIN DETEMIR (LEVEMIR) 100 UNIT/ML SYR SQ SCH (06:41)
[2019-11-16] MEDS: INSULIN ASPART (NovoLOG) 100 UNIT/ML VIAL SQ SCH ×2 (06:41→12:10)
[2019-11-16] MEDS: PANTOPRAZOLE 40 MG TABLET PO SCH (06:42)
[2019-11-16] MEDS: SYMBICORT 160-4.5 MCG INHALER INHALATION SCH (07:43)
[2019-11-16] MEDS: METOPROLOL SUCCINATE (ER) 50 MG TAB.ER.24H PO SCH (08:58)
[2019-11-16] MEDS: ASPIRIN 81 MG PO SCH (08:58)
[2019-11-16] MEDS: NICOTINE 21MG/24HR PATCH TRANSDERM SCH (08:58)
[2019-11-16] MEDS: FENOFIBRATE 160 MG TAB PO SCH (08:58)
[2019-11-16] MEDS: ATORVASTATIN 40 MG TAB PO SCH (08:58)
[2019-11-16] MEDS: GABAPENTIN 300 MG CAP PO SCH (08:58)
[2019-11-16] MEDS: CLOPIDOGREL 75 MG TAB PO SCH (08:58)
[2019-11-16] MEDS: RANOLAZINE 500 MG TAB.ER.12H PO SCH (08:58)
[2019-11-16] MEDS: ISOSORBIDE MONONITRATE ER 30 MG TAB.ER.24H PO SCH (08:58)
[2019-11-16] MEDS: EZETIMIBE 10 MG TAB PO SCH (09:02)
[2019-11-16 11:56] LABS: Glucose,Whole Blood 329 mg/dL (75-99)
[2019-11-16 12:39] VITALS: RESP 14
[2019-11-16 12:48] VITALS: BP 149/76; PULSE 58; TEMP 98
--- NOTE | 2019-11-16 15:52 | P.PN ---
Subjective Progress Note Date: 11/16/19 This is a 59-year-old gentleman who presented to the hospital following a syncopal episode. He was seen on the weekend by Dr. Martinez. Patient has a history of PAD, nicotine dependence, hyperlipidemia, coronary artery disease, diabetes, hypertension. The patient underwent a tilt table test yesterday that was mildly positive for orthostatic hypotension. His echo revealed a normal left ventricular systolic function. He's been up ambulating in his room today without any symptoms of dizziness or lightheadedness, hemodynamically he is been stable. 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 Objective - Vital Signs Vital signs: Vital Signs Temp 98.0 F 11/16/19 12:00 Pulse 58 L 11/16/19 12:00 Resp 14 11/16/19 12:00 BP 149/76 11/16/19 12:00 Pulse Ox 96 11/16/19 12:00 Intake & Output 11/15/19 11/16/19 11/16/19 18:59 06:59 18:59 Intake Total 897 720 Output Total 300 360 Balance 597 -360 720 Weight 126.7 kg 126.1 kg Intake: Oral 897 720 Output: Urine 300 360 Other: # Voids 1 1 1 - Exam PHYSICAL EXAMINATION: GENERAL: 89-year-old gentleman in no acute distress at the time of my examination HEENT: Head is atraumatic, normocephalic. Pupils equal, round. Sclera anicteric. Conjunctiva are clear. Mucous membranes of the mouth are moist. Neck is supple. There is no elevated jugular venous pressure. No carotid bru it is heard. HEART EXAMINATION: [Heart S1, S2 normal. No murmur or gallop heard.] CHEST EXAMINATION:[ Lungs are clear to auscultation and precussion. No chest wall tenderness is noted on palpation or with deep breathing.] ABDOMEN: [ Soft, nontender. Bowel sounds are heard. No organomegaly noted]. EXTREMITIES:[ 2+ peripheral pulses with no evidence of peripheral edema and no calf tenderness noted]. NEUROLOGIC [patient is awake, alert and oriented 3 . - Labs CBC & Chem 7: 11/13/19 17:00 11/13/19 17:00 Labs: Abnormal Lab Results - Last 24 Hours (Table) 11/15/19 11/15/19 11/16/19 Range/Units 17:18 20:26 06:27 POC Glucose (mg/dL) 186 H 190 H 214 H (75-99) mg/dL 11/16/19 Range/Units 11:55 POC Glucose (mg/dL) 329 H (75-99) mg/dL Assessment and Plan Plan: Assessment and plan #1 syncope, status post tilt table testing which revealed mild orthostatic hypotension #2 history of coronary artery disease #3 hypertension #4 diabetes #5 hyperlipidemia #6 COPD #7 nicotine dependence #8 sleep apnea Plan From cardiology's perspective, the echo showed normal LV function, no arrhythmias noted on the monitor. 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 We recommend a 30 day event monitor. DNP note has been reviewed, I agree with a documented findings and plan of care. Patient was seen and examined.
--- NOTE | 2019-11-17 05:24 | DS ---
DISCHARGE SUMMARY CHIEF COMPLAINT: Three episodes of syncope. HISTORY OF PRESENT ILLNESS AND PHYSICAL EXAM: Details of this man's history and physical can be found in the initial workup. LABORATORY STUDIES: While he was in a hospital he had laboratory studies, details of which can be found in the laboratory section of his chart. COURSE IN THE HOSPITAL: After admission, he was placed on bedrest and started on intravenous fluids and he was on continuous cardiac monitoring while in the hospital. He had no further episodes including syncope, neurologic signs or symptoms, chest pain, palpitations, arrhythmias, etc. He was followed in the hospital by Cardiology. It was felt that he could be discharged on the and he will go home on his usual activity, diet and medications and was instructed to contact his battery installer for the immediate followup appointment. He will be contacted by my office for a possible followup, if he so desires. FINAL DIAGNOSES: 1. Syncope x3. 2. Extensive history of coronary artery disease. 3. Type 2 diabetes mellitus. 4. History of congestive heart failure. 5. Chronic obstructive pulmonary disease. OPERATIONS: None. CONSULTATIONS: Cardiology. He is improved. MMODL / IJN: [id number] /
--- NOTE | 2019-11-18 11:37 | CDI ---
Documentation Clarification Form Date: 11/18/19 From: Taylor Weeks Phone: If you have a question about this query, please contact Zita Rosas, Rental Agent at [phone] between 8am and 5pm. Admit Date: 11/15/19 Discharge Date: 11/16/19 Patient Name: FLOR PEDRO Visit Number: [id number] ATTENTION: The Clinical Documentation Specialists (CDI) and [facility] Coding Staff appreciate your assistance in clarifying documentation. Please respond to the clarification below the line at the bottom and electronically sign. The CDI & [facility] Coding staff will review the response and follow-up if needed. Please note: Queries are made part of the Legal Health Record. If you have any questions, please contact the author of this message via ITS. Dear Dr. Geovani Muir, The patient has poorly controlled Type II diabetes, as indicated on progress note 11/14. POC Glucose: 179, 200, 343, 328, 288, 115, 318, 186, 190, 214, 329 Glucose: 164 A1c: 7.1 Treatment: consistent carbohydrate diet, Insulin Per [facility]oding [facility] [id number] - query the provider for clarification whether the patient has hyperglycemia or hypoglycemia so that the appropriate code may be reported - uncontrolled diabetes indicates that the patient's blood sugar is not at an acceptable level, because it is either too high or too low. In order to capture the severity of Illness and necessary documentation specificity, please clarify if Type 2 uncontrolled diabetes is: Hyperglycemia Other, please specify Unable to Determine MTDD
--- NOTE | 2019-11-19 10:43 | MISC ---
MISCELLANOUS REPORT Unable to determine. MMODL / IJN: [id number] /
--- NOTE | 2019-11-22 13:56 | CDI ---
Documentation Clarification Form Date: 11/22/19 From: Taylor Weeks Phone: If you have a question about this query, please contact Zita Rosas, Community Health Nurse Staff at [phone] between 8am and 5pm. Admit Date: 11/15/19 Discharge Date: 11/16/19 Patient Name: FLOR PEDRO Visit Number: [id number] ATTENTION: The Clinical Documentation Specialists (CDI) and [facility] Coding Staff appreciate your assistance in clarifying documentation. Please respond to the clarification below the line at the bottom and electronically sign. The CDI & [facility] Coding staff will review the response and follow-up if needed. Please note: Queries are made part of the Legal Health Record. If you have any questions, please contact the author of this message via ITS. Dear Dr. Geovani Muir, Syncope is documented in the ED note, H&P, all PNs, consult, procedure note and DS. Patient C/O: Three episodes of syncope. Patient history/risk factors: DM, hypertensive w heart failure, COPD, CAD, hyperlipidemia, WILMA Clinical Indicators: BP-110/66, P-71, R-18, afebrile Labs: Trig-598, Chol-164, HDL-24 Carotid US: Mildly elevated velocities multifocally however the common carotid artery to internal carotid artery ratios are within normal limits therefore findings suggest hypertension rather than hemodynamically significant atherosclerosis. CT Head: No acute intracranial process findings. Echocardiogram: Moderate concentric left ventricular hypertrophy. Overall left ventricular systolic function is normal with, an EF between 55 - 60 %. The right ventricle is mild to moderately enlarged. EKG: shows a normal sinus rhythm Tilt Test: Orthostatic hypotension syndrome, very mild. In your professional opinion, can you please clarify the cause of the syncope, if known? Orthostatic Hypotension due to/type Arrhythmia, specify type Carotid Sinus Syncope Vasovagal Psychogenic Syncope Other, please specify Unable to determine MTDD
--- NOTE | 2019-11-23 08:12 | P.CRDCN ---
History of Present Illness History of present illness: Taco modi This is Dr. Martinez dictating a consult on this patient The patient was interviewed and examined by me IMPRESSION / ASSESSMENT: 2 episodes of loss of consciousness likely vasovagal/orthostatic, 1 while standing and 1. while sitting Known coronary artery disease status post stenting Peripheral vascular disease Type 2 diabetes Current smoker and bilateral wheezing and rhonchi in lung rick Triglycerides greater than 500 PLAN: Telemetry monitoring for any arrhythmias Stop carvedilol nonselective agent Start metoprolol succinate 50 mg by mouth daily Continue Ranexa Stop Imdur Continue losartan 25 mg in the evening Dual antiplatelet therapy Statins and Zetia HPI 2 episodes of loss of consciousness the first one might he was standing The second one subsequently when he was sitting He was profusely sweating He's had these episodes in the past Recently his blood pressure medications were changed and lisinopril was discontinued He is known coronary artery disease peripheral vascular disease type 2 diabetes and a history of orthostasis on medications He follows with Dr. Ar[place] ROS: No fever chills or rigors, no cough, phlegm or expectoration, no nausea, vomiting or diarrhea, no hematuria, dysuria, no musculoskeletal complaints, no strokes or seizures, no skin lesions. EXAMINATION: Decreased breath sounds bilaterally with bilateral rhonchi and wheezing Normal heart sounds No lower extremity edema Soft abdomen nontender No JVD REVIEW OF LABS, ECG & MEDICAL DATA Serial ECGs show no change but he sinus rhythm normal SC narrow QRS diffuse ST segment elevation in both seizures In [address]ations Therefore these are not new changes 3 troponins are normal White count 9.4 Hematocrit 41.8 D-dimer normal Sodium 136 potassium 5.2 BUN 21 creatinine 1.28 Glucose 164 Past Medical History Past Medical History: Asthma, Chest Pain / Angina, Heart Failure, COPD, Diabetes Mellitus, Hyperlipidemia, Myocardial Infarction ([place]) Additional Past Medical History / Comment(s): hay fever, neuropathy, [place] in 2013 Last Myocardial Infarction Date:: 05/22/2014 History of Any Multi-Drug Resistant Organisms: None Reported Past Surgical History: Heart Catheterization, Heart Catheterization With Stent Additional Past Surgical History / Comment(s): [address] in 2013, 2 stents placed in 2012. Incision and drainage (debridement of left foot wound) Past Anesthesia/Blood Transfusion Reactions: No Reported Reaction Date of Last Stent Placement:: 05/2014 Past Psychological History: Anxiety, Depression Additional Psychological History / Comment(s): Patient was a smoker of 3-1/2 packs per day and currently cut down to 1 pack per day has been smoking since he was 13 years of age. He smokes marijuana occasionally. He denies any other street drug use or alcohol use. He lives at home with his . There is a dog in the home. 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 Denies experience. Smoking Status: Current every day smoker Past Alcohol Use History: None Reported Additional Past Alcohol Use History / Comment(s): Patient has been smoking since he was 13 years old. Stopped smoking for 5 weeks after his last admission for pneumonia. Has not smoked for 3-4 days now due to shortness of breath. Patient takes Chantix. Patient occasionally smokes marijuana. He lives at home with his . There is a dog in the home. 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 Past Drug Use History: Marijuana Additional Drug Use History / Comment(s): Uses Marijuana occasionally. - Past Family History Mother Family Medical History: Congestive Heart Failure (CHF), Diabetes Mellitus Father Family Medical History: Congestive Heart Failure (CHF), Diabetes Mellitus Medications and Allergies Home Medications Medication Instructions Recorded Confirmed Type Carvedilol [Coreg] 6.25 mg PO BID 08/27/15 12/31/15 History Clopidogrel [Plavix] 75 mg PO HS 08/27/15 12/31/15 History Fenofibrate,Micronized 200 mg PO HS 08/27/15 12/31/15 History [Fenofibrate] Gabapentin [Neurontin] 200 mg PO TID 08/27/15 12/31/15 History Lisinopril [Zestril] 5 mg PO DAILY 08/27/15 12/31/15 History Loratadine [Claritin] 10 mg PO BID 08/27/15 12/31/15 History Ranolazine [Ranexa] 500 mg PO BID 08/27/15 12/31/15 History Simvastatin [Zocor] 40 mg PO HS 08/27/15 12/31/15 History Citalopram Hydrobromide 40 mg PO DAILY 09/10/15 12/31/15 History [Citalopram HBr] Ezetimibe [Zetia] 10 mg PO DAILY 09/10/15 12/31/15 History Varenicline [Chantix Continuing 1 mg PO BID 09/10/15 12/31/15 History Pack] Albuterol Sulfate [Proair Hfa] 1 puff INHALATION RT-QID PRN 09/14/15 12/31/15 History ALPRAZolam [Xanax] 1 mg PO HS 10/08/15 12/31/15 History INSULIN LISPRO (humaLOG) [humaLOG] See Protocol SQ ACHS PRN 11/25/15 12/31/15 History INSULIN LISPRO (humaLOG) [humaLOG] 15 unit SQ AC-BRKFST #1 vial 11/30/15 12/31/15 Rx INSULIN LISPRO (humaLOG) [humaLOG] 25 unit SQ AC-LUNCH vial 11/30/15 12/31/15 Rx INSULIN LISPRO (humaLOG) [humaLOG] 25 unit SQ AC-SUPPER vial 11/30/15 12/31/15 Rx Insulin Glargine [Lantus] 60 unit SQ BID #0 11/30/15 12/31/15 Rx Isosorbide Mononitrate ER [Imdur] 60 mg PO QAM 12/10/15 12/31/15 History metFORMIN HCL 1,000 mg PO BID 12/10/15 12/31/15 History Allergies Allergy/AdvReac Type Severity Reaction Status Date / Time No Known Allergies Allergy Verified 11/13/19 18:46 Physical Exam Vitals: Vital Signs Temp Pulse Pulse Pulse Pulse Pulse Resp 11/14/19 08:00 98.3 F 65 16 11/14/19 05:30 11/14/19 04:00 98.5 F 70 81 62 17 11/13/19 23:40 98 F 68 17 11/13/19 20:58 98.0 F 64 18 11/13/19 20:00 97.9 F 64 18 11/13/19 19:00 62 18 11/13/19 17:43 68 18 11/13/19 16:56 98.3 F 71 18 BP BP BP BP BP Pulse Ox 11/14/19 08:00 135/70 95 11/14/19 05:30 145/70 11/14/19 04:00 144/75 168/86 173/89 96 11/13/19 23:40 125/60 96 11/13/19 20:58 137/71 97 11/13/19 20:00 113/69 96 11/13/19 19:00 117/67 97 11/13/19 17:43 95/57 94 L 11/13/19 16:56 110/66 97 Intake and Output 11/13/19 11/14/19 11/14/19 22:59 06:59 14:59 Output Total 300 Balance -300 Output: Urine 300 Other: Weight 132.903 kg 126.4 kg Results 11/13/19 17:00 11/13/19 17:00 Cardiac Enzymes 11/13/19 11/13/19 11/13/19 Range/Units 17:00 17:00 22:42 AST 21 (17-59) U/L Troponin I <0.012 <0.012 (0.000-0.034) ng/mL 11/14/19 Range/Units 04:39 AST (17-59) U/L Troponin I <0.012 (0.000-0.034) ng/mL Coagulation 11/13/19 Range/Units 17:00 PT 10.0 (9.0-12.0) sec APTT 21.3 L (22.0-30.0) sec Lipids 11/14/19 Range/Units 04:39 Triglycerides 598 H (<150) mg/dL Cholesterol 164 (<200) mg/dL HDL Cholesterol 24 L (40-60) mg/dL CBC 11/13/19 Range/Units 17:00 WBC 9.4 (3.8-10.6) k/uL RBC 4.96 (4.30-5.90) m/uL Hgb 13.5 (13.0-17.5) gm/dL Hct 41.8 (39.0-53.0) % Plt Count 452 H (150-450) k/uL Comprehensive Metabolic Panel 11/13/19 Range/Units 17:00 Sodium 136 L (137-145) mmol/L Potassium 5.2 H (3.5-5.1) mmol/L Chloride 103 (98-107) mmol/L Carbon Dioxide 22 (22-30) mmol/L BUN 21 H (9-20) mg/dL Creatinine 1.28 H (0.66-1.25) mg/dL Glucose 164 H (74-99) mg/dL Calcium 9.3 (8.4-10.2) mg/dL AST 21 (17-59) U/L ALT 18 (4-49) U/L Alkaline Phosphatase 79 (38-126) U/L Total Protein 6.7 (6.3-8.2) g/dL Albumin 3.8 (3.5-5.0) g/dL Current Medications Generic Name Dose Route Start Last Admin Trade Name Freq PRN Reason Stop Dose Admin Acetaminophen 650 mg 11/13/19 22:02 Tylenol Tab PO Q6HR PRN Fever and/ or Pain Aspirin 81 mg 11/15/19 09:00 Aspirin PO DAILY [facility] Atorvastatin Calcium 40 mg 11/15/19 09:00 Lipitor PO DAILY [facility] Clopidogrel Bisulfate 75 mg 11/15/19 09:00 Plavix PO DAILY [facility] Insulin Aspart 0 unit 11/14/19 07:30 11/14/19 06:29 Novolog SQ 3 unit ACHS MARY Administration Protocol Insulin Detemir 70 unit 11/14/19 07:00 11/14/19 08:24 Levemir SQ 70 unit BID@0700,2100 [facility] Administration Losartan Potassium 25 mg 11/14/19 18:00 Cozaar PO DAILY [facility] Metoprolol Succinate 50 mg 11/14/19 09:30 Toprol Xl PO DAILY [facility] Nicotine 1 patch 11/13/19 22:02 11/14/19 08:24 Habitrol 21mg/24hr Patch TRANSDERM 1 patch DAILY MARY Administration Nitroglycerin 0.4 mg 11/13/19 18:35 Nitrostat SUBLINGUAL Q5M PRN Chest Pain Ranolazine 500 mg 11/14/19 21:00 Ranexa PO Q12HR [facility] Intake and Output 11/13/19 11/14/19 11/14/19 22:59 06:59 14:59 Output Total 300 Balance -300 Output: Urine 300 Other: Weight 132.903 kg 126.4 kg 11/13/19 17:00 11/13/19 17:00
== END 2019-11-16 15:55 | disposition home or self-care (01) | DRG 312 ==
LOC: EC 16:55 → 3SCARD 20:49 → OBSVTOIN 11-15 09:02
PROVIDERS: ADMIT Family Medicine; ATTEND Family Medicine
PROC: 4A03XB1 Measurement of Arterial Pressure, Peripheral, External Approach (ICD-10-PCS; principal; 2019-11-15 14:10)
PROC: 4A02XFZ Measurement of Cardiac Rhythm, External Approach (ICD-10-PCS; principal; 2019-11-15 14:10)
DX: R55 Syncope and collapse (principal); I95.1 Orthostatic hypotension; E11.51 Type 2 diabetes mellitus with diabetic peripheral angiopathy without gangrene; E11.40 Type 2 diabetes mellitus with diabetic neuropathy, unspecified; I11.0 Hypertensive heart disease with heart failure; I50.9 Heart failure, unspecified; J44.9 Chronic obstructive pulmonary disease, unspecified; Z79.4 Long term (current) use of insulin; Z11.59 Encounter for screening for other viral diseases; J30.1 Allergic rhinitis due to pollen; I25.10 Atherosclerotic heart disease of native coronary artery without angina pectoris; E78.5 Hyperlipidemia, unspecified; G47.33 Obstructive sleep apnea (adult) (pediatric); I25.2 Old myocardial infarction; R27.8 Other lack of coordination; F17.210 Nicotine dependence, cigarettes, uncomplicated; Z79.51 Long term (current) use of inhaled steroids; Z79.02 Long term (current) use of antithrombotics/antiplatelets; Z79.899 Other long term (current) drug therapy; Z95.5 Presence of coronary angioplasty implant and graft; Z86.711 Personal history of pulmonary embolism; Z86.718 Personal history of other venous thrombosis and embolism; Z98.890 Other specified postprocedural states; Z86.59 Personal history of other mental and behavioral disorders; Z82.49 Family history of ischemic heart disease and other diseases of the circulatory system; Z83.3 Family history of diabetes mellitus
CPT/HCPCS: 36415; 70450; 70496; 70498; 70551; 71046; 80053; 80061; 83735; 84484; 85025; 85379; 85610; 85730; 87635; 93306; 93660; 93880; 94640; 95819; 99285

== ENCOUNTER → 2020-01-25 | Outpatient (CLI) | payer MEDICARE, OTHER ==
--- NOTE | 2020-01-25 11:56 | XR ---
EXAMINATION TYPE: XR foot complete LT DATE OF EXAM: 01/25/2020 COMPARISON: 08/27/2015 HISTORY: Diabetes with foot ulcer TECHNIQUE: Three-view left foot FINDINGS: Joint spaces appear preserved. There is some varus deformity of the distal digits. No acute fracture or dislocation is evident. Os cuboid lumen is present, normal variant. No suspicious cortic al erosions are evident. Soft tissue injury at the plantar distal foot is evident. IMPRESSION: 1. No acute osseous abnormality three-view left foot. 2. No suspicious changes to suggest osteomyelitis.
== END | disposition home or self-care (01) ==
LOC: RADXRMAIN 09:58
PROVIDERS: ATTEND Thoracic Surgery (Cardiothoracic Vascular Surgery)
DX: E11.621 Type 2 diabetes mellitus with foot ulcer (principal)

== ENCOUNTER → 2020-03-06 | Outpatient (CLI) | payer MEDICARE, OTHER ==
--- NOTE | 2020-03-07 12:06 | P.ARTDOP ---
Arterial Doppler LOWER EXTREMITY ARTERIAL DOPPLER: DATE OF SERVICE: 03/06/2020 Reason for study: Ulcer left great toe with diabetes. Doppler waveforms: Multiphasic bilaterally throughout. Pulse volume recording: Toe waveforms are excellent. Pressure gradients: No significant gradients. Ankle-brachial indices: Greater than 1 on the left. 0.96 on the right.. Toe brachial indices: 0.82 on the right, 0.73 on the left Impression: Normal study.
== END | disposition home or self-care (01) ==
LOC: RADUSWWP 12:43
PROVIDERS: ATTEND Thoracic Surgery (Cardiothoracic Vascular Surgery)
DX: E11.621 Type 2 diabetes mellitus with foot ulcer (principal); L97.522 Non-pressure chronic ulcer of other part of left foot with fat layer exposed; E66.09 Other obesity due to excess calories; F17.210 Nicotine dependence, cigarettes, uncomplicated
CPT/HCPCS: 93922; 93923

== ENCOUNTER → 2020-07-17 | Outpatient (CLI) | payer MEDICARE, OTHER ==
[2020-07-17 10:42] LABS: Basophils # (A) 0.1 k/uL (0-0.2); Basophils % (A) 1 %; Eosinophils # (A) 0.3 k/uL (0-0.7); Eosinophils % (A) 4 %; HCT 41.9 % (39.0-53.0); HGB 13.3 gm/dL (13.0-17.5); Hypochromasia Slight; Lymphocytes # (A) 2.2 k/uL (1.0-4.8); Lymphocytes % (A) 25 %; MCH 27.1 pg (25.0-35.0); MCHC 31.7 g/dL (31.0-37.0); MCV 85.4 fL (80.0-100.0); Mean Platelet Volume 6.8; Monocytes # (A) 0.6 k/uL (0-1.0); Monocytes % (A) 6 %; Neutrophils # (A) 5.6 k/uL (1.3-7.7); Neutrophils % (A) 63 %; Platelet Count 347 k/uL (150-450); WBC 8.9 k/uL (3.8-10.6)
[2020-07-17 17:32] LABS: Hemoglobin A1C 9.2 % (4.0-6.0)
[2020-07-17 17:35] LABS: Albumin 4.3 g/dL (3.80-4.90); Albumin/Globulin Ratio 1.87 (1.60-3.17); Anion Gap 12.4 mmol/L (4.00-12.00); C Reactive Protein 1.3 mg/dL (0.0-0.8); Calcium 9.3 mg/dL (8.7-10.3); Carbon Dioxide 21.6 mmol/L (21.6-31.8); Globulin 2.3 g/dL (1.6-3.3); Non-African American GFR(CKD) 93.2 (60.0-200.0); Potassium 4.9 mmol/L (3.5-5.5); Total Bilirubin 0.1 mg/dL (0.3-1.2); Total Protein 6.6 g/dL (6.2-8.2)
== END | disposition home or self-care (01) ==
LOC: LABWHC1 09:58
PROVIDERS: ATTEND Internal Medicine Infectious Disease
DX: E11.621 Type 2 diabetes mellitus with foot ulcer (principal)
CPT/HCPCS: 36415; 80053; 83036; 84134; 85025; 86140

== ENCOUNTER → 2021-01-08 | Outpatient (CLI) | payer MEDICARE, OTHER ==
--- NOTE | 2021-01-08 12:56 | XR ---
EXAMINATION TYPE: XR foot complete LT DATE OF EXAM: 01/08/2021 CLINICAL HISTORY: Foot ulcer TECHNIQUE: Frontal, lateral, and oblique images of the left foot are obtained. COMPARISON: 01/25/2020 FINDINGS: There is no acute fracture/dislocation evident in the left foot. There are degenerative changes of the interphalangeal joint of the great toe and of the mid foot. Deg enerative changes of the sesamoid are seen. Soft tissue swelling is seen about the dorsum of the foot. IMPRESSION: No definite plain radiographic evidence for osteomyelitis, however, MRI is more sensitive. There is soft tissue swelling about the dorsum of the foot.
== END | disposition home or self-care (01) ==
LOC: RADXRMAIN 10:46
PROVIDERS: ATTEND Internal Medicine Infectious Disease
DX: E11.621 Type 2 diabetes mellitus with foot ulcer (principal)